=== PATIENT | male | born 1965 | race Asian ===

== ENCOUNTER → 2024-12-26 15:31 | Outpatient (CLI) | payer OTHER, SELFPAY ==
--- NOTE | 2024-12-26 15:38 | DI.RAD.S_ITS ---
PROCEDURE: XR LUMBAR SPINE MIN 4V INDICATIONS: 7-9 foot fall onto low back TECHNIQUE: 5 views of the lumbar spine were acquired, including bilateral oblique views. COMPARISON: None. FINDINGS: Vertebral body heights, alignment within normal limits without radiographic evidence of fracture or subluxation. Moderate degenerative changes of the lumbar spine with disc space narrowing, osteophytes, facet osseous hypertrophic changes most notably at L3-4, L4-5 and L5-S1 with suspected mild bilateral neural foraminal narrowing. No gross radiographic evidence of pars defect. IMPRESSION: Degenerative changes. No radiographic evidence of fracture or subluxation. If symptoms persist or worsen, or there is high clinical suspicion of fracture or other lumbar abnormality, CT or MRI could be performed. Dictated by: Alfonso Ortiz M.D. on 12/26/2024 at 16:28 Approved by: Alfonso Ortiz M.D. on 12/26/2024 at 16:30
== END ==
PROVIDERS: PCP Chiropractor; Referring Provider Chiropractor; Visit Provider Chiropractor
DX: S30.0XXA Contusion of lower back and pelvis, initial encounter (principal); M47.816 Spondylosis without myelopathy or radiculopathy, lumbar region; M47.817 Spondylosis without myelopathy or radiculopathy, lumbosacral region; W17.89XA Other fall from one level to another, initial encounter
CPT/HCPCS: 72110